=== PATIENT | female | born 1985 ===

== ENCOUNTER 2017-07-27 22:17 | Emergency (ER) | payer OTHER ==
[2017-07-27 22:29] VITALS: BP 113/78; PULSE 93; RESP 16; TEMP 99; O2SAT 100; BMI 43.6
[2017-07-27] MEDS ORDERED: TDAP Vaccine 0.5 mL Syr IM ONE (22:33)
[2017-07-27] MEDS ORDERED: Emtricitabine-Tenofovir 200 mg-300 mg Tab PO STA (22:33)
--- NOTE | 2017-07-27 22:44 | ED PDOC ---
Arrival/HPI <Neftali Lund - Last Filed: 07/27/17 23:33> <Avelino Bhatti - Last Filed: 07/27/17 23:42> - General Chief Complaint: Needle Stick Time Seen by Provider: 07/27/17 22:24 - History of Present Illness Narrative History of Present Illness (Text): 07/27/17 22:40 Pt is a 32yo F w/ a Past medical history of Asthma who is presenting to the Emergency department with a needle stick injury. Patient in question is currently boarding in [facility] with unknown HIV and Hepatitis status; rapid tests were sent. Patient has no other complaints. Patient cleaned the area immediately ; was stuck with an insulin needle. Patient is negative in status with HIV and Hepatitis as far as she knows. Denies fevers/chills, headache, chest pain, shortness of breath, abdominal pain, Nausea, vomiting, diarrhea, dysuria/freq/ urg or lower extremity pain/swelling. (Avelino Bhatti) Past Medical History - Provider Review Nursing Documentation Reviewed: Yes <Neftali Lund - Last Filed: 07/27/17 23:33> - Cardiac Hx Cardiac Disorders: No - Pulmonary Hx Respiratory Disorders: Yes Hx Asthma: Yes - Psychiatric Hx Substance Use: No <Avelino Bhatti - Last Filed: 07/27/17 23:42> Family/Social History - Physician Review Nursing Documentation Reviewed: Yes Family/Social History: Unknown Family HX <Neftali Lund - Last Filed: 07/27/17 23:33> Smoking Status: Never Smoked Hx Alcohol Use: Yes Frequency of alcohol use: Socially Hx Substance Use: No <Avelino Bhatti - Last Filed: 07/27/17 23:42> Allergies/Home Meds <Neftali Lund - Last Filed: 07/27/17 23:33> <Avelino Bhatti - Last Filed: 07/27/17 23:42> Allergies/Adverse Reactions: Allergies cefaclor [From Ceclor] Allergy (Verified 07/27/17 22:28) RASH Home Medications: Home Meds Medication Instructions Recorded Confirmed Albuterol HFA [Ventolin HFA 90 2 puff IH PRN PRN 07/27/17 07/27/17 mcg/actuation (8 g)] Fluticasone/Salmeterol 500/50 1 puff IH BID 07/27/17 07/27/17 [Advair Diskus 500/50] Montelukast [Singulair] mg PO DAILY 07/27/17 Review of Systems - Review of Systems Constitutional: absent: Fatigue Eyes: absent: Vision Changes ENT: absent: Hearing Changes Respiratory: absent: SOB Cardiovascular: absent: Chest Pain Gastrointestinal: absent: Abdominal Pain Genitourinary Female: absent: Dysuria Musculoskeletal: absent: Arthralgias Skin: absent: Rash Neurological: absent: Headache Endocrine: absent: Diaphoresis Hemo/Lymphatic: absent: Adenopathy Psychiatric: absent: Anxiety, Depression <Avelino Bhatti - Last Filed: 07/27/17 23:42> Physical Exam Temperature: Afebrile Blood Pressure: Normal Pulse: Regular Respiratory Rate: Normal Appearance: Positive for: Well-Appearing Mental Status: Positive for: Alert and Oriented X 3 - Systems Exam Head: Present: Atraumatic, Normocephalic Pupils: Present: PERRL Extroacular Muscles: Present: EOMI Conjunctiva: Present: Normal Mouth: Present: Moist Mucous Membranes Neck: Present: Normal Range of Motion Respiratory/Chest: Present: Clear to Auscultation, Good Air Exchange Cardiovascular: Present: Regular Rate and Rhythm, Normal S1, S2. No: Murmurs Abdomen: No: Tenderness, Distention Back: Present: Normal Inspection. No: CVA Tenderness Upper Extremity: Present: Normal Inspection. No: Cyanosis, Edema Lower Extremity: Present: Normal Inspection. No: Edema Neurological: Present: GCS=15, CN II-XII Intact, Speech Normal Skin: Present: Warm Psychiatric: Present: Alert, Oriented x 3, Normal Insight <Avelino hBatti - Last Filed: 07/27/17 23:42> Vital Signs Temp Pulse Resp BP Pulse Ox 07/27/17 22:28 99 F 93 H 16 113/78 100 Medical Decision Making - Lab Interpretations I have reviewed the lab results: Yes <Neftali Lund - Last Filed: 07/27/17 23:33> <Avelino Bhatti - Last Filed: 07/27/17 23:42> ED Course and Treatment: Impression: Pt seen and evaluated with medical affairs director. Pt, whose past medical history includes jamie, presents s/p needle stick injury. Aware and agree with HPI, clinical findings, plan, and management. Plan: -- Labs, amylase, hepatitis panel, rapid HIV, Urinalysis, urine cultures -- Reassess and disposition (Neftali Lund) 07/27/17 22:42 Emergency department needle stick protocol ordered Rapid HIV, Hep Panel, CMP, Preg, Amylase ordered patient will wait for patients results to come back; if comes back negative patient does not want to take prophylaxis Explained in detail that rapid HIV is only accurate if the patient was exposed more than 3 months ago and her need to follow up with ID afterwords for further blood work to make sure she has negative status patient verbalized understanding of benefits and risks (Avelino Bhatti) - Lab Interpretations Lab Results: 07/27/17 22:50 07/27/17 22:50 Lab Results 07/27/17 23:02: Urine Color Yellow, Urine Appearance Clear, Urine pH 6.0, Ur Specific [place] >= 1.030, Urine Protein Negative, Urine Glucose (UA) Negative, Urine Ketones Negative, Urine Blood Trace-intact H, Urine Nitrate Negative, Urine Bilirubin Negative, Urine Urobilinogen 0.2, Ur Leukocyte Esterase Trace H , Urine RBC 0 - 2, Urine WBC 1 - 3, Ur Epithelial Cells 1 - 3, Urine Bacteria Small, Urine HCG, Qual Negative 07/27/17 22:50: Sodium 140, Potassium 3.8, Chloride 105, Carbon Dioxide 22, Anion Gap 17, BUN 10, Creatinine 0.8, Est GFR ( Amer) > 60, Est GFR (Non- Af Amer) > 60, Random Glucose 83, Calcium 9.4, Total Bilirubin 0.6, AST 30, ALT 29, Alkaline Phosphatase 67, Total Protein 7.5, Albumin 4.2, Globulin 3.3, Albumin/Globulin Ratio 1.3, Amylase 53 07/27/17 22:50: WBC 7.2, RBC 4.85, Hgb 12.9, Hct 38.9, MCV 80.2, MCH 26.6, MCHC 33.2, RDW 14.9 H, Plt Count 242, MPV 10.4, Gran % 63.3, Lymph % (Auto) 26.9, [place] % (Auto) 4.0, Eos % (Auto) 5.7 H, Baso % (Auto) 0.1, Gran # 4.54, Lymph # 1.9, [place] # 0.3, Eos # 0.4, Baso # 0.01 Disposition/Present on Arrival <Neftali Lund - Last Filed: 07/27/17 23:33> - Present on Arrival Any Indicators Present on Arrival: No History of DVT/PE: No History of Uncontrolled Diabetes: No Urinary Catheter: No History of Decub. Ulcer: No History Surgical Site Infection Following: None - Disposition Have Diagnosis and Disposition been Completed?: Yes Disposition Time: 23:40 Patient Plan: Discharge <Avelino Bhatti - Last Filed: 07/27/17 23:42> - Disposition Diagnosis: Needle stick injury, Need for post exposure prophylaxis for hepatitis B Disposition: HOME/ ROUTINE Condition: FAIR Discharge Instructions (ExitCare): Needle Stick Injuries (ED), Postexposure Prophylaxis (ED) Additional Instructions: [facility] Employee Regarding your Work Related Injury, you are instructed to do all of the following by next day: 1. Notify [facility] [facility] Employee Health Department of the sustained injury and arrange for any follow-up appointments if needed during the next business day. If the office is closed or no answer is received, please leave a detailed voice message. Message should include your full name, department and ecommerce merchandising manager, date of injury, date of ED visit if applicable. Employee Health can be reached at [phone]. 2. If there is time lost, notify [facility] Human Resources Department of the work related injury the next business day at [phone]. 3. Please make sure to follow up with infectious disease as well. Prescriptions were given for PEP and they need to be started within 72 hours of exposure for them to be effective. Referrals: [facility], [Primary Care Provider] - Follow up with primary Jono Mercado MD [Staff Provider] - Follow up with primary Avelino Zambrano MD [Staff Provider] - Follow up with primary Forms: [employer] (Uzbek)
[2017-07-27 23:06] LABS: ALB/GLOB RATIO 1.3 (1.1-1.8); ALKALINE PHOSPHATASE 67 U/L (38-126); ALT/SGPT 29 U/L (7-56); AMYLASE 53 U/L (35-125); AST/SGOT 30 U/L (14-36); BILIRUBIN,TOTAL 0.6 mg/dL (0.2-1.3); BLOOD UREA NITROGEN 10 mg/dL (7-21); CALCIUM 9.4 mg/dL (8.4-10.5); CARBON DIOXIDE 22 mmol/L (21-33); CHLORIDE 105 mmol/L (98-107); GFR AFRICAN-AMERICAN > 60; GLUCOSE,RANDOM 83 mg/dL (70-110); POTASSIUM 3.8 mmol/L (3.6-5.0); SODIUM 140 mmol/L (132-148); TOTAL PROTEIN 7.5 g/dL (5.8-8.3)
[2017-07-27 23:10] LABS: URINE BILIRUBIN NEGATIVE (NEGATIVE); URINE BLOOD TRACE-INTACT (NEGATIVE); URINE GLUCOSE (UA) NEGATIVE (NEGATIVE); URINE KETONE NEGATIVE (NEGATIVE); URINE LEUKOCYTE ESTERASE TRACE Leu/uL (NEGATIVE); URINE PROTEIN NEGATIVE mg/dL (<30 mg/dL); URINE UROBILINOGEN 0.2 E.U./dL (<1 E.U./dL)
[2017-07-27 23:12] LABS: BASO # 0.01 K/mm3 (0.0-2.0); BASO % 0.1 % (0.0-3.0); EOS # 0.4 (0.0-0.7); EOS % 5.7 % (1.5-5.0); GRAN # 4.54 (1.4-6.5); GRAN % 63.3 % (50.0-68.0); HEMATOCRIT 38.9 % (36.0-48.0); LYMPH # 1.9 (1.2-3.4); LYMPH % 26.9 % (22.0-35.0); MEAN CELL VOLUME 80.2 fl (80.0-105.0); MEAN CORPUSCULAR HEMOGLOBIN 26.6 pg (25.0-35.0); MEAN CORPUSCULAR HGB CONC 33.2 g/dl (31.0-37.0); MEAN PLATELET VOLUME 10.4 fl (7.0-11.0); MONO # 0.3 (0.1-0.6); RED CELL DISTRIBUTION WIDTH 14.9 % (11.5-14.5); WHITE BLOOD COUNT 7.2 10^3/ul (4.5-11.0)
[2017-07-27 23:14] LABS: URINE APPEARANCE CLEAR (CLEAR); URINE COLOR YELLOW (YELLOW)
[2017-07-27 23:26] LABS: URINE BACTERIA SMALL (NEG); URINE RBC 0 - 2 /hpf (0-2)
== END 2017-07-27 23:44 | disposition home or self-care (01) ==
LOC: EDBD → ED 22:17
DX: Z77.21 Contact with and (suspected) exposure to potentially hazardous body fluids (principal); W46.0XXA Contact with hypodermic needle, initial encounter; Y99.0 Civilian activity done for income or pay

== ENCOUNTER 2017-10-03 05:01 | Emergency (ER) | payer OTHER ==
[2017-10-03 05:10] VITALS: RESP 17
[2017-10-03 05:13] VITALS: BMI 42.9
--- NOTE | 2017-10-03 05:24 | ED PDOC ---
Arrival/HPI - General Chief Complaint: Abnormal Skin Integrity Time Seen by Provider: 10/03/17 05:17 Historian: Patient - History of Present Illness Narrative History of Present Illness (Text): 10/03/17 05:24 Mireya Persaud is a 32 year old female who presents to the Emergency department complaining of a right forearm abrasion prior to arrival. Patient states she was scratched by a confused patient while at work and sustained an abrasion to the right forearm. Patient denies any pain/redness to the area, decreased range of motion, or any other complaints. Time/Duration: Prior to Arrival Symptom Onset: Sudden Symptom Course: Unchanged Activities at Onset: Light Context: Work Past Medical History - Provider Review Nursing Documentation Reviewed: Yes - Cardiac Hx Cardiac Disorders: No - Pulmonary Hx Respiratory Disorders: Yes Hx Asthma: Yes - Psychiatric Hx Substance Use: No Family/Social History - Physician Review Nursing Documentation Reviewed: Yes Family/Social History: Unknown Family HX Smoking Status: Never Smoked Hx Alcohol Use: Yes Hx Substance Use: No Allergies/Home Meds Allergies/Adverse Reactions: Allergies amoxicillin [From Augmentin] Allergy (Verified 10/03/17 05:13) RASH cefaclor [From Ceclor] Allergy (Verified 07/27/17 22:28) RASH clavulanic acid [From Augmentin] Allergy (Verified 10/03/17 05:13) RASH Home Medications: Home Meds Medication Instructions Recorded Confirmed Albuterol HFA [Ventolin HFA 90 2 puff IH PRN PRN 07/27/17 10/03/17 mcg/actuation (8 g)] Montelukast [Singulair] 10 mg PO DAILY 07/27/17 10/03/17 Review of Systems - Physician Review All systems were reviewed & negative as marked: Yes - Review of Systems Constitutional: Normal. absent: Fevers Eyes: Normal ENT: Normal Respiratory: Normal. absent: SOB, Cough Cardiovascular: Normal. absent: Chest Pain Gastrointestinal: Normal. absent: Abdominal Pain, Diarrhea, Nausea, Vomiting Genitourinary Female: Normal. absent: Dysuria, Frequency, Hematuria, Urine Output Changes Musculoskeletal: Normal. absent: Back Pain, Neck Pain Skin: Other (+abrasion to right forearm) Neurological: Normal. absent: Headache, Dizziness Endocrine: Normal Hemo/Lymphatic: Normal Psychiatric: Normal Physical Exam Vital Signs Reviewed: Yes Vital Signs Temp Pulse Resp BP Pulse Ox 10/03/17 05:09 97.9 F 83 17 139/91 H 100 Temperature: Afebrile Blood Pressure: Normal Pulse: Regular Respiratory Rate: Normal Appearance: Positive for: Well-Appearing, Non-Toxic, Comfortable Pain Distress: None Mental Status: Positive for: Alert and Oriented X 3 - Systems Exam Head: Present: Atraumatic, Normocephalic Pupils: Present: PERRL Extroacular Muscles: Present: EOMI Conjunctiva: Present: Normal Mouth: Present: Moist Mucous Membranes Neck: Present: Normal Range of Motion Upper Extremity: Present: Normal ROM, NORMAL PULSES, Neurovascularly Intact, Capillary Refill < 2s, Other (Superficial abrasion to right forearm). No: Cyanosis, Edema, Tenderness, Swelling, Erythema, Temperature Abnormalties, Deformity Lower Extremity: Present: Normal Inspection. No: Edema Neurological: Present: GCS=15, CN II-XII Intact, Speech Normal Skin: Present: Warm, Dry, Normal Color. No: Rashes Psychiatric: Present: Alert, Oriented x 3, Normal Insight, Normal Concentration Medical Decision Making ED Course and Treatment: 10/03/17 05:24 Impression: 32 year old female complaining of right forearm abrasion prior to arrival. Differential Diagnosis included but are not limited to: abrasion Plan: -- Wound care -- Reassess and disposition Prior Visits: Notes and results from previous visits were reviewed. On 07/27/2017, pt was seen in the Emergency department s/p needlestick. Instructed to f/u with [employer] health. Progress Notes: 10/03/17 05:30 Area was cleansed with NS/bacitracin/sterile bandaid placed. - Scribe Statement The provider has reviewed the documentation as recorded by the Amada Robbins Provider Scribe Attestation: All medical record entries made by the Scribcarmelo were at my direction and personally dictated by me. I have reviewed the chart and agree that the record accurately reflects my personal performance of the history, physical exam, medical decision making, and the department course for this patient. I have also personally directed, reviewed, and agree with the discharge instructions and disposition. Disposition/Present on Arrival - Present on Arrival Any Indicators Present on Arrival: No History of DVT/PE: No History of Uncontrolled Diabetes: No Urinary Catheter: No History of Decub. Ulcer: No History Surgical Site Infection Following: None - Disposition Have Diagnosis and Disposition been Completed?: Yes Diagnosis: Forearm abrasion Disposition: HOME/ ROUTINE Disposition Time: 05:28 Patient Plan: Discharge Condition: GOOD Discharge Instructions (ExitCare): Abrasion (ED) Additional Instructions: Keep area clean and dry/apply bacitracin ointment twice daily Prescriptions: Bacitracin Ointment [Bacitracin] 30 gm TOP BID #30 tube Forms: [facility] (Faroese), WORK NOTE
[2017-10-03 05:41] VITALS: BP 130/82; PULSE 82; TEMP 98; O2SAT 98
== END 2017-10-03 05:41 | disposition home or self-care (01) ==
LOC: ED 05:01
DX: S50.811A Abrasion of right forearm, initial encounter (principal); W50.4XXA Accidental scratch by another person, initial encounter; Y93.F9 Activity, other caregiving; Y92.238 Other place in hospital as the place of occurrence of the external cause; Y99.0 Civilian activity done for income or pay